=== PATIENT | female | born 1970 | race Caucasian/White ===

== ENCOUNTER → 2020-03-15 10:29 | Outpatient (CLI) | payer OTHER, SELFPAY ==
--- NOTE | ~2020-03-15 | US_ITS ---
EXAMINATION: US soft tissue abdomen DATE: 03/15/2020 11:04 INDICATION: Pain and focal swelling, mass or lump at the left upper quadrant TECHNIQUE: Multiple grayscale ultrasound images of the left upper quadrant abdominal wall at the [place] on of concern. were obtained. COMPARISON: None FINDINGS/IMPRESSION: Normal appearance to the subcutaneous fat and abdominal wall musculature at the region of concern. No evident hernia, abnormal masses or fluid collections identified. Reviewed, dictated and finalized at location B.
== END ==
PROVIDERS: PCP Family Medicine; Visit Provider Physician Assistant
DX: R19.02 Left upper quadrant abdominal swelling, mass and lump (principal)
CPT/HCPCS: 76705

== ENCOUNTER 2020-09-17 15:52 | Outpatient (CLI) | payer OTHER, SELFPAY ==
[2020-09-17 16:44] LABS: Alanine Aminotransferase 35 U/L (4-35); Albumin Level 4.4 g/dL (3.5-5.1); Alkaline Phosphatase 107 U/L (38-126); Anion Gap 5 mmol/L (8-16); Aspartate Amino Transferase 35 U/L (14-36); Bilirubin,Total 0.3 mg/dL (0.2-1.3); Blood Urea Nitrogen 8 mg/dL (7-17); Carbon Dioxide 31 mmol/L (22-30); Chloride 102 mmol/L (98-107); Estimated Glomerular Filt Rate > 60; Glucose 99 mg/dL (65-105); Potassium 3.8 mmol/L (3.4-5.0); Sodium 138 mmol/L (137-145)
[2020-09-17 18:30] LABS: Hepatitis B Surface Antigen Negative (Negative)
[2020-09-17 18:36] LABS: HAV RESULT Negative (Negative); Hepatitis B Core IgM Result Negative (Negative)
[2020-09-17 18:48] LABS: Hepatitis C Virus Antibody Negative (Negative)
[2020-09-23 18:12] LABS: Anti Nuclear Antibody Pattern Nuclear, Speckled; Anti Nuclear Antibody Titer 1:40 (Negative)
== END 2020-09-17 15:53 | disposition home or self-care (01) ==
LOC: ANHLAB 15:54
PROVIDERS: PCP Family Medicine; Visit Provider Physician Assistant
DX: R74.8 Abnormal levels of other serum enzymes (principal)
CPT/HCPCS: 36415; 80053; 80074; 82728; 86038; 86039